=== PATIENT | male | born 1960 | race American Indian/Alaskan Native ===

== ENCOUNTER 2018-09-07 16:52 | Emergency (ER) | payer BC ==
--- NOTE | 2018-09-07 20:00 | Emergency Department Report ---
Upper Extremity - HPI Chief Complaint: Shoulder Injury Stated Complaint: NECK/SHOULDER PAIN Time Seen by Provider: 09/07/18 19:49 Upper Extremity: Right Shoulder, Right Thumb Occurred When: >5 Days Mechanism: Unsure Severity: moderate Symptoms: Yes Pain with Movement, No Deformity, No Limited Range of Movement, No Numbness (+ tingling R thumb), No Weakness, No Swelling, No Bruising/ Ecchymosis, No Laceration or Abrasion Other History: Reports R lateral neck and shoulder soreness that radiates down R arm x 1 week with tingling in thumb. No trauma or other complaints. ED Review of Systems ROS: Stated complaint: NECK/SHOULDER PAIN Other details as noted in HPI Comment: All other systems reviewed and negative Constitutional: denies: chills, fever Eyes: denies: eye pain, eye discharge, vision change ENT: denies: ear pain, throat pain Respiratory: denies: cough, shortness of breath, wheezing Cardiovascular: denies: chest pain, palpitations Endocrine: no symptoms reported Gastrointestinal: denies: abdominal pain, nausea, diarrhea Genitourinary: denies: urgency, dysuria Musculoskeletal: other (neck pain). denies: back pain, joint swelling, arthralgia Skin: denies: rash, lesions Neurological: paresthesias. denies: headache, weakness Psychiatric: denies: anxiety, depression Hematological/Lymphatic: denies: easy bleeding, easy bruising ED Past Medical Hx - Past Medical History Previous Medical History?: No - Surgical History Past Surgical History?: No - Social History Smoking Status: Never Smoker Substance Use Type: None - Medications Home Medications: Home Medications Medication Instructions Recorded Confirmed Last Taken Type methylPREDNISolone [Medrol] 4 mg PO QAM #1 tab.ds.pk 09/07/18 Unknown Rx Upper Extremity Exam - Exam General: Vital signs noted. No distress. Alert and acting appropriately. Neuro exam is nonfocal. Head and Torso: No HEENT Abnormality, No Neck Tenderness, No Chest/Lungs Abnormality, No Abdominal Tenderness, No Back Tenderness Shoulder Exam: Yes Normal Range of Motion in Shoulder, No Shoulder Tenderness, No Clavicle Tenderness, No Shoulder Deformity, No AC Joint Tenderness Arm Exam: No Arm/Humerus Tenderness, No Arm Deformity Elbow: Yes Normal Range of Motion in Elbow, No Elbow Tenderness, No Elbow Deformity Forearm: No Forearm Tenderness, No Forearm Deformity, No Pain with Pronation, No Pain with Supination Wrist: Yes Normal ROM in Wrist, No Wrist Tenderness, No Wrist Deformity, No Snuffbox Tenderness, No Pain with Axial Thumb Compression Hand: Yes Normal ROM in Digit(s), No Hand Tenderness, No Hand Deformity, No Digit Tenderness, No Digit(s) Deformity, No Tendon Dysfunction CMS Exam: Yes Normal Distal Pulses, Yes Normal Capillary Refill, Yes Normal Distal Sensation, No Broken Skin ED Course Vital Signs 09/07/18 18:02 Temperature 98.3 F Pulse Rate 64 Respiratory 18 Rate Blood Pressure 171/80 O2 Sat by Pulse 99 Oximetry ED Medical Decision Making - Medical Decision Making Symptoms seem consistent with a cervical radiculopathy. I do not suspect CVA or similar cause of symptoms. Pt without other complaints, benign exam. Advise PCP/ ortho f/u, monitor BP. - Differential Diagnosis cervical radiculopathy, htn Critical care attestation.: If time is entered above; I have spent that time in minutes in the direct care of this critically ill patient, excluding procedure time. ED Disposition Clinical Impression: Cervical radiculopathy Disposition: TO HOME OR SELFCARE Is pt being admited?: No Condition: Good Instructions: Cervical Radiculopathy (ED) Prescriptions: methylPREDNISolone [Medrol] 4 mg PO QAM #1 tab.ds.pk Referrals: ANNIE ROBERTO MD [Staff Physician] - 3-5 Days BLAISE BLANCAS MD [Staff Physician] - 3-5 Days Time of Disposition: 20:02
[2018-09-07 20:22] VITALS: BP 168/86
== END 2018-09-07 20:16 | disposition home or self-care (01) ==
LOC: ED 16:52
DX: M54.12 Radiculopathy, cervical region (principal)
CPT/HCPCS: 99282